=== PATIENT | male | born 1960 | race Two or more races ===

== ENCOUNTER 2025-01-29 21:01 | Inpatient (IN) | payer OTHER ==
[~2025-01-29] VITALS: Ht 177.8 cm; Wt 95.3 kg
[2025-01-29 21:40] VITALS: PULSE 118; RESP 31; O2SAT 88
[2025-01-29] MEDS: SODIUM CHLORIDE 0.9% 1,000 ML IV ONE (21:41)
--- NOTE | 2025-01-29 21:53 | DVH ---
CHEST RADIOGRAPH Indication: Suspected Sepsis Technique: Single frontal view of the chest was obtained Comparison: None FINDINGS: Lines and Tubes: None Lungs: Left lower lobe airspace disease and possible pleural effusion.. Pleura: Possible pleural effusion on the left as well as airspace disease. No pneumothorax. Cardiomediastinal contours: Unremarkable Bones: No acute osseous abnormality. IMPRESSION: 1. Left lower lobe airspace disease and pleural effusion. No prior studies for comparison.
[2025-01-29 21:59] LABS: Chloride 99 mmol/L (98-107); Potassium 3.5 mmol/L (3.5-5.1)
[2025-01-29 22:00] LABS: Anion Gap 13 (5-15); Basophils # (auto) 0 10 ^3/uL (0-0.2); Basophils % (auto) 0.1 % (0.0-2.0); Carbon Dioxide 24 mmol/L (20-31); Eosinophils # (auto) 0 10 ^3/uL (0-0.8); Eosinophils % (auto) 0.1 % (0.0-7.0); Hematocrit 36.8 % (41.0-53.0); Hemoglobin 12.4 g/dL (13.5-17.5); Lymphocytes # (auto) 0.9 10 ^3/uL (0.4-5.4); Lymphocytes % (auto) 6.9 % (10.0-50.0); Mean Corpuscular Hemoglobin 31.5 pg (28.0-32.0); Mean Corpuscular Hgb Conc. 33.7 g/dL (32.0-36.0); Mean Corpuscular Volume 93.5 fL (80.0-100.0); Monocytes # (auto) 0.8 10 ^3/uL (0-1.3); Monocytes % (auto) 5.6 % (0.0-12.0); Neutrophils # (auto) 11.8 10 ^3/uL (1.6-8.6); Neutrophils % (auto) 87.3 % (37.0-80.0); Nucleated Red Blood Cells % 0.1 %; Platelet Count (auto) 439 10^3/uL (140-450); Red Blood Cells 3.94 10^6/uL (4.5-5.90); Red Cell Distribution Width 15.7 % (11.8-14.3); White Blood Cell 13.6 10^3/uL (4.4-10.8)
[2025-01-29 22:05] LABS: BUN/Creatinine Ratio 29.4 (10.0-20.0); Blood Urea Nitrogen 20 mg/dL (9-23)
[2025-01-29 22:06] LABS: Magnesium 2.2 mg/dL (1.6-2.6)
[2025-01-29 22:10] LABS: Calcium 8.4 mg/dL (8.7-10.4); Glucose 135 mg/dL (74-106); Sodium 136 mmol/L (136-145)
--- NOTE | 2025-01-29 22:47 | DVH ---
CLINICAL HISTORY: Bilateral lower extremity edema, shortness of breath TECHNIQUE: Color and duplex doppler imaging of the bilateral lower extremity veins was performed. Ves brijesh compression if possible was also performed. WID: COMPARISON: None FINDINGS: Right Lower Extremity: Right common femoral vein: Normal compressibility and flow. Right femoral vein: Normal compressibility and flow. Right popliteal vein: Normal compressibility and flow. Proximal calf veins are normally compressible. Left Lower Extremity: Left common femoral vein: Normal compressibility and flow. Left femoral vein: Normal compressibility and flow. Left popliteal vein: Normal compressibility and flow. Proximal calf veins are normally compressible. IMPRESSION: NO SONOGRAPHIC EVIDENCE FOR DEEP VENOUS THROMBOSIS IN THE BILATERAL LOWER EXTREMITY VEINS.
--- NOTE | 2025-01-29 23:09 | ED.PDOC ---
History of Present Illness HPI Comments 64 y/o M presents with c/o sternal, nonradiating chest pain, palpitations, shortness of breath, productive cough, nausea, vomiting, lightheadedness, and fever. Patient endorses on being sick for the past few weeks. Describes chest pain as tightness in quality. Vomitus contains bile. Endorses history of h ypertension, pneumonia, and recent UTI diagnosis. He is on Keflex, currently, for aforementioned UTI. He takes no medication for hypertension for the past 5 years and has been managing it via diet. 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 Patient denies having any chills, bloody vomitus, diarrhea, or further associated symptoms. Per EMS report, vitals were stable within normal limits with, with the exception of being tachycardic and having an initial SpO2 of 84% on room air. Patient was given DuoNeb treatment in route, with significant improvement to SpO2 93%. Chief Complaint: Nausea/Vomiting Time Seen by MD: 21:15 Reviewed Notes: Nurses Notes, Medications, Allergies Allergies: Coded Allergies: NO KNOWN ALLERGIES (Unverified , 01/29/25) Information Source: Patient Mode of Arrival: EMS Severity: Moderate Timing: Hours Duration: Since onset Prehospital treatment: None Review of Systems: REVIEW OF SYSTEMS: Fever, no chills, or fatigue HEENT: No sore throat, no earache, no congestion, no neck pain. Cardiac: Chest pain, palpitations, lightheadedness Lungs: Shortness of breath, productive cough. GI: Nausea, vomiting, no diarrhea, no constipation, no abdominal pain : No dysuria, frequency, or urgency. No hematuria. Musculoskeletal: No joint pain , no joint swelling, no extremity edema. Skin: No rash, no itching. Neuro: No headache, no dizziness, no weakness Vital Signs Vital Signs Date Time Temp Pulse Resp B/P (MAP) Pulse Ox O2 Delivery O2 Flow Rate FiO2 01/29/25 23:09 118 01/29/25 21:08 98.8 24 117/90 (99) 93 98.8 Physical Exam General: Awake, alert and oriented. No acute distress. Skin: Skin in warm, dry and intact. Appropriate color for ethnicity. HEENT: The head is normocephalic and atraumatic. Conjunctivae are clear without exudates or hemorrhage. Sclera is non-icteric. EOM are intact. No signs of nystagmus. Eyelids are normal in appearance without swelling or lesions. Oral mucosa is pink and moist Neck: The neck is supple with normal range of motion. No JVD. Cardiac: Rapid heart rate but rhythm is normal. No murmurs, gallops, or rubs are auscultated. Respiratory: No signs of respiratory distress. Lung sounds are clear in all lobes bilaterally without rales, rhonchi, or wheezes. Abdominal: Abdomen is soft, non-tender without distention, guarding or rigidity. Bowel sounds are present and normoactive in all four quadrants. Extremities: Bilateral pedal edema. Otherwise, remaining upper and lower extremities are atraumatic in appearance without deformity or edema Neurological: The patient is awake, alert and oriented to person, place, and time with normal speech. Speech is clear. There is no facial asymmetry. Psychiatric: Appropriate mood and affect. Good judgement and insight. Past Medical History PAST MEDICAL HISTORY: Denies Surgical History: Denies all surgeries Family History Family History: Unknown Social History Smoker: Non-Smoker Alcohol: Denies ETOH Use Drugs: Denies Drug Use Lives In: Home Was a procedure done? Was a procedure done?: No EKG EKG : Pulse Rate (adult): 118 [place]: Normal Cardiac Rhythm: ST Block: None Hypertrophy: None ST: Normal Differential Dx Considerations may include: Differential diagnoses considered include acute ischemic coronary syndrome, aortic dissection, cardiac tamponade, mediastinitis, pulmonary embolus, pneumothorax, tension pneumothorax, esophageal rupture, coronary artery vasospasm, myocarditis, pericarditis, pneumonia, pulmonary edema, esophageal tear, pancreatitis, aortic stenosis, dilated cardiomyopathy, hypertrophic cardiomyopathy, mitral valve prolapse, malignancy, pleuritis, pneumomediastinum, primary pulmonary hypertension, cholecystitis, esophageal spasm, esophagus, gastritis, GERD, peptic ulcer disease, costochondritis, fibromyalgia, rib fracture, herpes zoster, radicular syndromes, thoracic outlet syndrome, somatization. X-Ray, Labs, Meds, VS Vital Signs Date Time Temp Pulse Resp B/P (MAP) Pulse Ox O2 Delivery O2 Flow Rate FiO2 01/29/25 23:09 118 01/29/25 21:08 98.8 129 24 117/90 (99) 93 98.8 01/29/25 21:07 118 Lab Test 01/29/25 22:10 01/29/25 21:27 Range/Units Troponin I High Sensitivity 15 17 </=54 ng/L White Blood Count 13.6 H 4.4-10.8 10^3/uL Red Blood Count 3.94 L 4.5-5.90 10^6/uL Hemoglobin 12.4 L 13.5-17.5 g/dL Hematocrit 36.8 L 41.0-53.0 % Mean Corpuscular Volume 93.5 80.0-100.0 fL Mean Corpuscular Hemoglobin 31.5 28.0-32.0 pg Mean Corpuscular Hemoglobin Concent 33.7 32.0-36.0 g/dL Red Cell Distribution Width 15.7 H 11.8-14.3 % Platelet Count 439 140-450 10^3/uL Mean Platelet Volume 8.1 6.9-10.8 fL Neutrophils (%) (Auto) 87.3 H 37.0-80.0 % Lymphocytes (%) (Auto) 6.9 L 10.0-50.0 % Monocytes (%) (Auto) 5.6 0.0-12.0 % Eosinophils (%) (Auto) 0.1 0.0-7.0 % Basophils (%) (Auto) 0.1 0.0-2.0 % Neutrophils # (Auto) 11.8 H 1.6-8.6 10 ^3/uL Lymphocytes # (Auto) 0.9 0.4-5.4 10 ^3/uL Monocytes # (Auto) 0.8 0-1.3 10 ^3/uL Eosinophils # (Auto) 0 0-0.8 10 ^3/uL Basophils # (Auto) 0 0-0.2 10 ^3/uL Nucleated Red Blood Cells 0.1 % Sodium Level 136 136-145 mmol/L Potassium Level 3.5 3.5-5.1 mmol/L Chloride Level 99 98-107 mmol/L Carbon Dioxide Level 24 20-31 mmol/L Anion Gap 13 5-15 Blood Urea Nitrogen 20 9-23 mg/dL Creatinine 0.68 L 0.700-1.30 mg/dL Glomerular Filtration Rate Calc 105 >90 mL/min BUN/Creatinine Ratio 29.4 H 10.0-20.0 Serum Glucose 135 H 74-106 mg/dL Lactic Acid Level 1.4 0.4-2.0 mmol/L Calcium Level 8.4 L 8.7-10.4 mg/dL Magnesium Level 2.2 1.6-2.6 mg/dL B-Type Natriuretic Peptide 247.79 0-100 pg/mL Current Medications Medications (Trade) Dose Ordered Sig/William Route Start Time Stop Time Status Last Admin Sodium Chloride 1,000 ml @ 1,000 mls/hr Q1H ONCE IV 01/29/25 21:30 01/29/25 22:29 DC 01/29/25 21:41 Sodium Chloride 1,850 ml @ 1,850 mls/hr Q1H ONCE IV 01/29/25 23:30 01/30/25 00:29 01/29/25 23:44 Piperacillin Sod/ Tazobactam Sod 100 ml @ 100 mls/hr ONCE ONCE IV 01/29/25 23:30 01/30/25 00:29 01/29/25 23:48 [place] [address] Ph: [phone] DIAGNOSTIC IMAGING Diagnostic Imaging Report : [id number] Signed PATIENT: TAY BELL ACCT: [id number] UNIT: [id number] : 1960 LOC: ER ROOM / BED: / AGE / SEX: 64 / M ADM STATUS: REG ER SERVICE 17 ORDERING PHYSICIAN: TRUDY ANTONY MD PROCEDURE(s): CXR1 - CHEST XRAY 1 VIEW REASON: Suspected Sepsis ORDER NUMBER(s): [id number], ACCESSION NUMBER(s): [id number] CHEST RADIOGRAPH Indication: Suspected Sepsis Technique: Single frontal view of the chest was obtained Comparison: None FINDINGS: Lines and Tubes: None Lungs: Left lower lobe airspace disease and possible pleural effusion.. Pleura: Possible pleural effusion on the left as well as airspace disease. No pneumothorax. Cardiomediastinal contours: Unremarkable Bones: No acute osseous abnormality. IMPRESSION: 1. Left lower lobe airspace disease and pleural effusion. No prior studies for comparison. ATED BY: CATIA SALAS Jr. DO DICTATED DATE/TIME: 01/29/252150 SIGNED BY: CATIA SALAS Jr., DO SIGNED DATE/TIME: 01/29/252150 CC: [place] [address] Ph: [phone] DIAGNOSTIC IMAGING Diagnostic Imaging Report : [id number] Signed PATIENT: TAY BELL ACCT: [id number] UNIT: [id number] : 1960 LOC: ER ROOM / BED: / AGE / SEX: 64 / M ADM STATUS: REG ER SERVICE 17 ORDERING PHYSICIAN: TRUDY ANTONY MD PROCEDURE(s): BLDVT - BiLat Lower DVT REASON: Bilateral lower extremity edema, shortness of breath ORDER NUMBER(s): [id number], ACCESSION NUMBER(s): [id number] CLINICAL HISTORY: Bilateral lower extremity edema, shortness of breath TECHNIQUE: Color and duplex doppler imaging of the bilateral lower extremity veins was performed. Vessel compression if possible was also performed. WID: COMPARISON: None FINDINGS: Right Lower Extremity: Right common femoral vein: Normal compressibility and flow. Right femoral vein: Normal compressibility and flow. Right popliteal vein: Normal compressibility and flow. Proximal calf veins are normally compressible. Left Lower Extremity: Left common femoral vein: Normal compressibility and flow. Left femoral vein: Normal compressibility and flow. Left popliteal vein: Normal compressibility and flow. Proximal calf veins are normally compressible. IMPRESSION: NO SONOGRAPHIC EVIDENCE FOR DEEP VENOUS THROMBOSIS IN THE BILATERAL LOWER EXTREMITY VEINS. ATED BY: ANDREW PORTER MD DICTATED DATE/TIME: 01/29/252243 SIGNED BY: ANDREW PORTER MD SIGNED DATE/TIME: 01/29/252243 CC: Time of 1ST Reevaluation: 21:45 Reevaluation 1ST: Unchanged Patient Education/Counseling: Treatment, Other (need for admission ) Family Education/Counseling: No Family Present Sepsis Sepsis Reasesment Focused Exam Orders: Laboratory Tests 01/29/25 21:27: Lactic Acid Level 1.4 Departure 1 Departure Time of Disposition: 00:19 Impression: Primary Impression: Pneumonia Additional Impressions: Atrial fibrillation with RVR Hypoxia Disposition: ADMITTED INPATIENT Condition: Serious Comments 64-year-old male who presented with shortness of breath, generally feeling unwell found to have pneumonia. He was started on antibiotics. During the ED observation he was noted to convert to atrial fibrillation with RVR with a rate as high as 180s. No improvement with 6 mg of adenosine. Patient is started on amiodarone bolus and drip. Patient admitted to hospitalist service for further treatment, evaluation and monitoring. Extensive evaluation was performed in attempt to identify or rule out: (See differential diagnosis section) The following tests were ordered, and results were reviewed by me and discussed with patient: (See diagnostic results section) The following test were independently interpreted by me: EKG I reviewed and agreed with the following test results read by other providers: N/A I reviewed the following notes from the pt's past medical encounters: N/A Additional information was gathered from interviewing the following independent historians: EMS personnel Discussion of management or test interpretation with external physician/other qualified health housekeeper caregiver: Chest x-ray Addressed an acute or chronic illness that poses a threat to life or bodily function: Pneumonia, hypoxia, AFib with RVR Decision regarding hospitalization or escalation of hospital level of care: Risk and benefits of admission for further treatment of patient's condition was considered. Due to patient's current clinical condition, high risk of decline and poor outcome if discharged and need for further inpatient management and monitoring, patient will be admitted to the hospital. Drug therapy requiring intensive monitoring for toxicity: IV adenosine, IV amiodarone Parenteral controlled substances: N/A Decision regarding elective major surgery with identified patient or procedure risk factors: N/A Decision regarding emergency major surgery: N/A Decision not to resuscitate or to de-escalate care because of poor prognosis: N/A Diagnosis or treatment significantly limited by social determinants of health: N/A Critical Care Note Critical Care Time?: Yes (35 min-critical care time only) Critical care comment: Due to a high probability of clinically significant, life threatening deterioration, the patient required my highest level of preparedness to intervene emergently and I personally spent this critical care time directly and personally managing the patient. This critical care time included obtaining a history; examining the patient; pulse oximetry; ordering and review of studies; arranging urgent treatment with development of a management plan; evaluation of patient's response to treatment; frequent reassessment; and, discussions with other providers. This critical care time was performed to assess and manage the high probability of imminent, life-threatening deterioration that could result in multi-organ failure. It was exclusive of separately billable procedures and treating other patients and teaching time. Please see my other sections and the rest of the note for further information on patient assessment and treatment. Stability Stability form required: No Heart Score Heart Score: Heart Score Response (Comments) Value History N/A 0 EKG N/A 0 Age N/A 0 Risk Factors N/A 0 Troponin N/A 0 Total 0 I personally scribed for TRUDY ANTONY MD ([email or web address]) on 01/29/25 at 23:09. Electronically submitted by López Antonio ([email or web address]). TRUDY ANTONY MD Jan 29, 2025 23:09
[2025-01-29] MEDS: SODIUM CHLORIDE 0.9% 1,850 ML IV ONE (23:44)
[2025-01-29] MEDS: PIPERACILLIN-TAZOB 3.375GM 100 ML IV ONE (23:48)
[2025-01-30] VITALS (83 sets, daily range): BP systolic 79–132; BP diastolic 41–100; PULSE 90–178; RESP 12–41; TEMP 97.9–98.9; O2SAT 76–99
[2025-01-30] MEDS: ADENOSINE 6 MG/2 ML INJ IV ONE ×4 (00:09→02:42)
[2025-01-30] MEDS: AMIODARONE BOLUS KIT 100 ML IV ONE ×3 (00:30→02:41)
[2025-01-30] MEDS: dilTIAZem 25 MG/5 ML VIAL IV ONE ×4 (00:46→02:41)
[2025-01-30] MEDS: dilTIAZem 125mg/125ml BAG KIT 125 ML IV ONE (01:17)
[2025-01-30] MEDS: SODIUM CHLORIDE 0.9% 1,000 ML IV ONE ×2 (02:33→03:53)
[2025-01-30] MEDS: AMIODARONE 360mg/200mL PREMIX 200 ML IV ONE ×2 (02:41→02:48)
[2025-01-30] MEDS: AMIODARONE 360mg/200mL PREMIX 200 ML IV SCH (02:48)
[2025-01-30] MEDS ORDERED: MORPHINE SULFATE INJ 2 MG/ml SYRG IV PRN (03:00)
[2025-01-30] MEDS ORDERED: VANCOMYCIN PER PHARMACY 0 MG IV SCH (03:00)
[2025-01-30] MEDS ORDERED: NITROGLYCERIN 0.4 MG SL TAB SL PRN (03:00)
[2025-01-30] MEDS ORDERED: ACETAMINOPHEN 325 MG TAB PO PRN (03:30)
[2025-01-30] MEDS: VANCOMYCIN 1GM/200ML PM 250 ML IV ONE (03:45)
[2025-01-30] MEDS: POTASSIUM CHL 20 Meq TABLET PO ONE ×2 (03:52→06:30)
[2025-01-30] MEDS: PANTOPRAZOLE 40 MG/10 ML VIAL INJ IV ONE (03:52)
[2025-01-30] MEDS: ENOXAPARIN SOD 100 MG/1 ML SYRINGE SC ONE (04:09)
--- NOTE | 2025-01-30 04:49 | DVHHPRES ---
History of Present Illness Resident Creating Document: JHVIRGINIEBISHNUCRIS RESIDENT History of Present Illness Patient is a 64-year-old male with a past medical history of hypertension presented to the ED with a chief complaint of shortness of breath, palpitations and productive cough. Patient reports that in September this year he had flu/COVID following which he had bacterial sinusitis and he received antibiotics and he returned to his normal work. 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 Patient reported since about a week ago he started to have cough initially dry but then started to have phlegm which brownish in color. Patient denied any chills but reported of feeling feverish but did not record. He has a associated mild chest pain on coughing in the left side. Since the last 2 days patient had worsening shortness of breath and episode of palpitations following which he came called the EMS and as per EMS patient was tachycardic and had low oxygen at 84% on room air following which he was given a DuoNeb treatment and put on oxygen EN route and is SpO2 improved. On arrival to the ER patient was tachycardic in the ECG showed atrial fibrillation with a RVR following which the patient was given a push of diltiazem but it did not improve and another push was given the heart rate did not decrease following which he was put on the diltiazem drip. Past medical history: Hypertension diagnosed about 5 years ago and patient is not on any medications Past surgical history: None Social history: Patient smokes 3-4 pack of cigarettes per week for the last 30 years, denies alcohol and any other drug use Home medications: None Review of Systems Review of Systems Patient seen and examined at the bedside Reports of shortness of breath which has improved since he came in to the hospital, currently on 2-3 L oxygen via nasal cannula Reports of mild chest pain on coughing, cough with expectoration No dysuria, abdominal pain Allergies: Coded Allergies: NO KNOWN ALLERGIES (Unverified , 01/29/25) Medications Current Medications Medications Dose Ordered Sig/William Route Start Time Stop Time Status Last Admin Dose Admin Nitroglycerin 0.4 mg Q5MINP PRN SL 01/30/25 03:00 Morphine Sulfate 2 mg Q30M PRN IV 01/30/25 03:00 Vancomycin HCl 0 ml @ 0 mls/hr UD IV 01/30/25 03:00 UNV Piperacillin Sod/ Tazobactam Sod 100 ml @ 25 mls/hr Q8HR IV 01/30/25 06:00 Enoxaparin Sodium 100 mg Q12HR SC 01/30/25 10:00 UNV Exam Vital Signs Vital Signs Date Time Temp Pulse Resp B/P (MAP) Pulse Ox O2 Delivery O2 Flow Rate FiO2 01/30/25 01:17 113/80 01/30/25 00:11 162 01/29/25 21:08 98.8 24 93 98.8 Exam Gen - no pallor, no icterus, no cyanosis, no clubbing, no LAD, no edema . Skin - Patients skin is warm and dry. HEENT - normocephalic, atraumatic, dry mucous membranes. Neck - full ROM, no LAD, jugular venous pulsation seen in the lower 3rd of the SCM Pulmonary - right lung - breath sounds heard in whole of the lung without rales, left lung breath sounds not heard in the lower 3rd, middle 3rd minimal rales, no wheezing, no stridor cardiovascular - irregularly irregular S1,S2 heard, patient was tachycardic. peripheral pulses normal radial 2+, pedal 2+. capillary refill normal <2 secs. GI - soft, nontender abdomen. no hepatospleenomegaly. Bowel sounds normoactive Neurological - Patient is A/O X 3 . Bilateral upper extremity strength 5/5, bilateral lower extremity strength 5/5, no facial droop, normal speech, no tr emor, no sensory deficiets. Labs/Xrays Labs Test 01/30/25 00:20 01/29/25 21:27 Range/Units Troponin I High Sensitivity 17 </=54 ng/L White Blood Count 13.6 H 4.4-10.8 10^3/uL Red Blood Count 3.94 L 4.5-5.90 10^6/uL Hemoglobin 12.4 L 13.5-17.5 g/dL Hematocrit 36.8 L 41.0-53.0 % Mean Corpuscular Volume 93.5 80.0-100.0 fL Mean Corpuscular Hemoglobin 31.5 28.0-32.0 pg Mean Corpuscular Hemoglobin Concent 33.7 32.0-36.0 g/dL Red Cell Distribution Width 15.7 H 11.8-14.3 % Platelet Count 439 140-450 10^3/uL Mean Platelet Volume 8.1 6.9-10.8 fL Neutrophils (%) (Auto) 87.3 H 37.0-80.0 % Lymphocytes (%) (Auto) 6.9 L 10.0-50.0 % Monocytes (%) (Auto) 5.6 0.0-12.0 % Eosinophils (%) (Auto) 0.1 0.0-7.0 % Basophils (%) (Auto) 0.1 0.0-2.0 % Neutrophils # (Auto) 11.8 H 1.6-8.6 10 ^3/uL Lymphocytes # (Auto) 0.9 0.4-5.4 10 ^3/uL Monocytes # (Auto) 0.8 0-1.3 10 ^3/uL Eosinophils # (Auto) 0 0-0.8 10 ^3/uL Basophils # (Auto) 0 0-0.2 10 ^3/uL Nucleated Red Blood Cells 0.1 % Sodium Level 136 136-145 mmol/L Potassium Level 3.5 3.5-5.1 mmol/L Chloride Level 99 98-107 mmol/L Carbon Dioxide Level 24 20-31 mmol/L Anion Gap 13 5-15 Blood Urea Nitrogen 20 9-23 mg/dL Creatinine 0.68 L 0.700-1.30 mg/dL Glomerular Filtration Rate Calc 105 >90 mL/min BUN/Creatinine Ratio 29.4 H 10.0-20.0 Serum Glucose 135 H 74-106 mg/dL Lactic Acid Level 1.4 0.4-2.0 mmol/L Calcium Level 8.4 L 8.7-10.4 mg/dL Magnesium Level 2.2 1.6-2.6 mg/dL B-Type Natriuretic Peptide 247.79 0-100 pg/mL Assessment/Plan Assessment/Plan Acute hypoxic respiratory failure Pneumonia likely due to Gram +/-bacteria Sepsis likely due to above Left pleural effusion - chest x-ray shows possible left lower lobe consolidation - total of 4 L IV fluids given - IV vancomycin plus Zosyn - POCUS showed left pleural effusion - chest ultrasound pending - Mucomyst q.6 hours - oxygen via nasal cannula 2-3 L/min - blood cultures pending - Sputum cultures pending Atrial fibrillation with RVR, newly diagnosed Hypertensive heart disease - on diltiazem drip - anticoagulation with the enoxaparin therapeutic dose - keep potassium above 4 and magnesium above 2 PUD prophylaxis: Protonix DVT prophylaxis: On enoxaparin therapeutic dose Goals of care discussed with the patient for over 29 minutes. Full code Critical care time spent: 71 minutes Plan discussed with Dr. Vega Plan discussed with: Patient, Other (NOMI Lorenzo) My Orders Orders - DIXIE JOHNSON RESIDENT Procedure Category Date Status Time Admit ADMIT 01/30/25 Transmitted 02:52 Nitroglycerin PHA 01/30/25 In Process Sublingual (Ntrostat 03:00 Morphine Sulfate PHA 01/30/25 In Process Injection 03:00 Oxygen By Nasal RT 01/30/25 Transmitted Cannula 02:52 Stat Ekg For Chest DESEAN 01/30/25 In Process Pain 02:52 Notify Md Of Changes [facility] 01/30/25 In Process From Base 02:[address] [facility] 01/30/25 In Process 24 Hours 02:[address] [facility] 01/30/25 In Process Protocol 02:[address] [facility] 01/30/25 In Process Every Shift 02:52 Vancomycin Per PHA 01/30/25 Pending Pharmacy 03:00 Piperacillin-Tazob PHA 01/30/25 In Process 3.375gm (Zosyn 3.375g 06:00 Drug Screen LAB 01/30/25 Logged 02:52 Complete Blood Count LAB 01/30/25 Logged 04:00 Comprehensive LAB 01/30/25 Logged Metabolic Panel 04:00 Mrsa Screen [facility] 01/30/25 Logged 02:52 Respiratory Culture [facility] 01/30/25 Logged W/ Gs 02:52 Enoxaparin Sodium PHA 01/30/25 Logged (Lovenox) 10:00 Acetaminophen Tablet PHA 01/30/25 In Process (Tylenol Tablet) 03:30 Pantoprazole PHA 01/30/25 In Process (Protonix) 10:00 Chest Ultrasound US 01/30/25 Logged 03:22 Sodium Chloride 0.9% PHA 01/30/25 In Process 03:45 Date of Service: Jan 30, 2025 Billing Provider: LARRY VEGA MD Common Visit Codes: 12011-UCSSPXE INP/OBS CARE (HIGH) Secondary Visit Codes: [id number] CARE PLAN 30 MINUTES DIXIE JOHNSON RESIDENT Jan 30, 2025 04:49
[2025-01-30 05:28] LABS: Basophils # (auto) 0 10 ^3/uL (0-0.2); Basophils % (auto) 0.3 % (0.0-2.0); Eosinophils # (auto) 0 10 ^3/uL (0-0.8); Eosinophils % (auto) 0.2 % (0.0-7.0); Hemoglobin 11.5 g/dL (13.5-17.5); Lymphocytes # (auto) 1.1 10 ^3/uL (0.4-5.4); Lymphocytes % (auto) 12.2 % (10.0-50.0); Mean Corpuscular Hemoglobin 31.6 pg (28.0-32.0); Mean Corpuscular Hgb Conc. 33.7 g/dL (32.0-36.0); Mean Corpuscular Volume 93.6 fL (80.0-100.0); Monocytes # (auto) 0.6 10 ^3/uL (0-1.3); Monocytes % (auto) 6.9 % (0.0-12.0); Neutrophils # (auto) 7.1 10 ^3/uL (1.6-8.6); Neutrophils % (auto) 80.4 % (37.0-80.0); Platelet Count (auto) 378 10^3/uL (140-450); Red Blood Cells 3.63 10^6/uL (4.5-5.90); White Blood Cell 8.9 10^3/uL (4.4-10.8)
[2025-01-30 05:28] LABS: COVID19 ANTIGEN SOFIA FIA NEGATIVE (NEGATIVE); Rapid Influenza A Negative (Negative); Rapid Influenza B Negative (Negative)
[2025-01-30 05:54] LABS: Alanine Aminotransferase 122 U/L (7-40); Alkaline Phosphatase 93 U/L (46-116); Anion Gap 11 (5-15); Aspartate Aminotransferase 137 U/L (13-40); Blood Urea Nitrogen 17 mg/dL (9-23); Calcium 7.4 mg/dL (8.7-10.4); Carbon Dioxide 24 mmol/L (20-31); Chloride 102 mmol/L (98-107); Glucose 119 mg/dL (74-106); Potassium 3.3 mmol/L (3.5-5.1); Sodium 137 mmol/L (136-145); Total Protein 5.5 g/dL (5.7-8.2)
[2025-01-30 05:55] LABS: Bilirubin, Total 0.4 mg/dL (0.2-1.0)
[2025-01-30] MEDS ORDERED: ALBUTEROL SULF 2.5 MG/0.5ML(0.5%) NEB SOLN NEB SCH (06:00)
[2025-01-30] MEDS: LEVALBUTEROL HCL 1.25 MG/3 ML NEB NEB SCH (06:12)
[2025-01-30] MEDS: ACETYLCYSTEINE 10 %(100MG/ML) SOL 4ML NEB SCH (06:12)
[2025-01-30] MEDS: PIPERACILLIN-TAZOB 3.375GM 100 ML IV SCH (06:19)
--- NOTE | 2025-01-30 06:57 | ECG ---
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
[2025-01-30] MEDS: POTASSIUM EFFERVESENT TAB 25 MEQ PO ONE (08:26)
--- NOTE | 2025-01-30 08:55 | DVH ---
Bilateral Chest Sonogram Date: 01/30/2025 07:13 AM Clinical history: left pleural effusion Findings: Limited sonographic evaluation of the right and left chest was performed to localize and lu fluid f or thoracentesis. Small left pleural effusion. No right pleural effusion IMPRESSION: Small left pleural effusion. No right pleural effusion END IMPRESSION:
--- NOTE | 2025-01-30 08:55 | DVH ---
CHEST RADIOGRAPH Indication: SOB Technique: Single frontal view of the chest was obtained Comparison: XY CHEST XRAY 1 VIEW on DOS: 01/29/25, XY CHEST XRAY 1 VIEW on DOS: 01/29/25 FINDINGS: Lines and Tubes: None Lungs: Left lower lobe airspace disease and possible pleural effusion.. Pleura: Possible pleural effusion on the left as well as airspace disease. No pneumothorax. Cardiomediastinal contours: Unremarkable Bones: No acute osseous abnormality. IMPRESSION: 1. Left lower lobe airspace disease and pleural effusion. No prior studies for comparison.
--- NOTE | 2025-01-30 09:17 | DVHINCON2 ---
Date Seen: Jan 30, 2025 Referring Physician MD [place] resident Reason for Consultation New onset Afib RVR History of Present Illness This is a 64-year-old male patient who presents to the emergency room with chief complaint of shortness of breath, palpitations and cough. The patient reports he has been having a cough for the last couple of weeks. He reports generalized weakness for approximately one week. The patient describes worsening shortness of breath and palpitations that began yesterday morning. He came to the emergency room for further evaluation. Initial twelve lead electrocardiogram reveals atrial fibrillation with a rapid ventricular response. While in the emergency room, the patient was given adenosine 6 mg IV x1 followed by adenosine 12 mg IV x1, with no improvement in heart rate. ER provider then ordered Cardizem 15 mg IV x1. Followed by Cardizem 20 mg IV x1, still with no improvement in heart rate. The patient was subsequently initiated on a Cardizem drip by ER physician. At the time of assessment, the patient remains in atrial fibrillation with rapid ventricular rate. Initial troponin level of 17ng/L with flat trend thereafter. Significant past medical history includes hypertension, COVID pneumonia in September 2024, recent urinary tract infection, tobacco use and obesity. The patient reports he does not follow a primary care physician and the last time he was evaluated by provider was approximately five years ago. Past Medical History Past medical history reviewed. No other significant than mentioned above. Past Surgical History Denies any previous surgeries Family History Family history reviewed. Social History Patient has a 20 pack-year history, smokes half a pack per day Denies any illicit drug use Denies any alcohol use Allergies: Coded Allergies: NO KNOWN ALLERGIES (Unverified , 01/29/25) Home Meds Denies taking any prescribed medications Current Medications Current Medications Medications (Trade) Dose Ordered Sig/William Route PRN Reason Start Time Stop Time Status Last Admin Nitroglycerin (Ntrostat Sublingual) 0.4 mg Q5MINP PRN SL FOR CHEST PAIN 01/30/25 03:00 Morphine Sulfate 2 mg Q30M PRN IV FOR CHEST PAIN 01/30/25 03:00 Vancomycin HCl 0 ml @ 0 mls/hr UD IV 01/30/25 03:00 Piperacillin Sod/ Tazobactam Sod 100 ml @ 25 mls/hr Q8HR IV 01/30/25 06:00 01/30/25 06:19 Enoxaparin Sodium (Lovenox) 100 mg Q12H SC 01/30/25 16:00 Acetaminophen (Tylenol Tablet) 650 mg Q6HP PRN PO PAIN SCALE 1-3 OR TEMP>100.4 01/30/25 03:30 Pantoprazole Sodium (Protonix) 40 mg DAILY IV 01/30/25 10:00 Acetylcysteine (Mucomyst Inahalation 10%) 100 mg Q6HR NEB 01/30/25 06:00 01/30/25 06:12 Albuterol (Ventolin Medneb) 2.5 mg Q6HR NEB 01/30/25 06:00 01/30/25 05:15 DC Levalbuterol HCl (Xopenex Medneb) 0.625 mg Q6HR NEB 01/30/25 06:00 01/30/25 06:12 Vancomycin HCl 150 ml @ 150 mls/hr Q8H IV 01/30/25 12:00 Review of Systems Constitutional: No symptom reported Ears, Nose, & Throat: No symptom reported Eyes: No symptom reported Neurological: No symptoms reported Pulmonary/Respiratory: shortness of breath Cardiovascular: Palpitations Gastrointestinal: No symptom reported Genitourinary: No symptom reported Musculoskeletal: No symptom reported Skin: No symptom reported Psychiatric: No symptom reported Endocrine: No symptom reported Hematologic/Lymphatic: No symptom reported Vital Signs Vital Signs Date Time Temp Pulse Resp B/P (MAP) Pulse Ox O2 Delivery O2 Flow Rate FiO2 01/30/25 08:30 95/59 01/30/25 08:00 113 26 92 Nasal Cannula* 4 36 01/30/25 07:25 98.8 98.8 Physical Exam General Appearance: Cooperative. Obese Pulmonary/Respiratory: Diminished bilateral lower lobes Cardiovascular/Chest: Irregularly irregular rate and rhythm. Peripheral Pulses: 2+ Radial (R). 2+ Radial (L). 2+ Pedal (R). 2+ Pedal (L) Abdominal Exam: Normal bowel sounds. Ankle Exam: Negative ankle edema Lower extremities: Negative lower extremity edema Neuro/Mental Status: A/OX4, coherent. Thoughts/Psych: Normal thought pattern. Appropriate mood and affect. Good judgment and insight. Appearance: No acute distress. Skin Exam: Normal inspection. Normal color. Warm and dry. Labs/Diagnostic Data Labs Test 01/30/25 06:52 01/30/25 05:03 01/30/25 04:30 01/30/25 00:20 Range/Units Lactic Acid Level 1.4 0.4-2.0 mmol/L White Blood Count 8.9 # 4.4-10.8 10^3/uL Red Blood Count 3.63 L 4.5-5.90 10^6/uL Hemoglobin 11.5 L 13.5-17.5 g/dL Hematocrit 34.0 L 41.0-53.0 % Mean Corpuscular Volume 93.6 80.0-100.0 fL Mean Corpuscular Hemoglobin 31.6 28.0-32.0 pg Mean Corpuscular Hemoglobin Concent 33.7 32.0-36.0 g/dL Red Cell Distribution Width 16.0 H 11.8-14.3 % Platelet Count 378 140-450 10^3/uL Mean Platelet Volume 7.8 6.9-10.8 fL Neutrophils (%) (Auto) 80.4 H 37.0-80.0 % Lymphocytes (%) (Auto) 12.2 10.0-50.0 % Monocytes (%) (Auto) 6.9 0.0-12.0 % Eosinophils (%) (Auto) 0.2 0.0-7.0 % Basophils (%) (Auto) 0.3 0.0-2.0 % Neutrophils # (Auto) 7.1 1.6-8.6 10 ^3/uL Lymphocytes # (Auto) 1.1 0.4-5.4 10 ^3/uL Monocytes # (Auto) 0.6 0-1.3 10 ^3/uL Eosinophils # (Auto) 0 0-0.8 10 ^3/uL Basophils # (Auto) 0 0-0.2 10 ^3/uL Nucleated Red Blood Cells 0.0 % Sodium Level 137 136-145 mmol/L Potassium Level 3.3 L 3.5-5.1 mmol/L Chloride Level 102 98-107 mmol/L Carbon Dioxide Level 24 20-31 mmol/L Anion Gap 11 5-15 Blood Urea Nitrogen 17 9-23 mg/dL Creatinine 0.63 L 0.700-1.30 mg/dL Glomerular Filtration Rate Calc 108 >90 mL/min BUN/Creatinine Ratio 27.0 H 10.0-20.0 Serum Glucose 119 H 74-106 mg/dL Calcium Level 7.4 L 8.7-10.4 mg/dL Total Bilirubin 0.4 0.2-1.0 mg/dL Aspartate Amino Transferase (AST) 137 H 13-40 U/L Alanine Aminotransferase (ALT) 122 H 7-40 U/L Alkaline Phosphatase 93 46-116 U/L Total Protein 5.5 L 5.7-8.2 g/dL Albumin 3.0 L 3.2-4.8 g/dL Thyroid Stimulating Hormone (TSH) 1.84 0.55-4.78 uIU/mL Influenza Type A Antigen Negative Negative Influenza Type B Antigen Negative Negative SARS-CoV-2 Antigen (Rapid) Negative NEGATIVE Troponin I High Sensitivity 17 </=54 ng/L Test 01/29/25 21:27 Range/Units Magnesium Level 2.2 1.6-2.6 mg/dL B-Type Natriuretic Peptide 247.79 0-100 pg/mL Assessment Atrial fibrillation with rapid ventricular response, new onset Rule out structural heart disease Hypertension Pneumonia Hypokalemia Transaminitis Tobacco use Morbid obesity Plan/Recommendation We will continue with the following plan/recommendations (Dr. Navas): * Transthoracic echocardiogram to evaluate cardiac function * ?[id number] VASc score: 1 point * Therapeutic Lovenox, transition to NOAC when appropriate * Continue Cardizem drip if patient has normal EF on echo * Loading dose digoxin, followed by maintenance dose * Monitor and replete electrolytes as needed * Close Cardiac surveillance * Antibiotics per primary care team Case discussed with . Thank you for allowing us to care for this patient. Please call with any questions or concerns. Critical care time spent: 44 minutes This medical document was created using an electronic medical record system with voice recognition software and computerized dictation system. Although this document has been carefully reviewed, there might still be some phonetic and typographical errors. Occasional wrong-word or ``sound-alike substitutions may have occurred due to the inherent limitations of voice recognition software. These areas are purely typographical due to imperfections of the software programs and do not reflect any compromise in the patient's medical care. Please read the chart carefully and recognize, using context, where these substitutions have occurred. Plan discussed with: Patient NYHA Physical activity limitations: NA Date of Service: Jan 30, 2025 Billing Provider: ANUP RODRIGUEZ RELIABILITY TECHNOLOGIST Cardiology Common Codes: 05041-NFWLFCT INP/OBS CARE (High) Cardiology Consultation Codes: 63827-[id number] CONSULT <45MIN ANUP RODRIGUEZ [facility] Jan 30, 2025 09:17
[2025-01-30] MEDS: PANTOPRAZOLE 40 MG/10 ML VIAL INJ IV SCH (09:32)
[2025-01-30] MEDS: DIGOXIN (250MCG/ML) 2 ML AMPULE IV ONE ×2 (10:49→13:22)
[2025-01-30] MEDS: VANCOMYCIN 750mg/150ml 150 ML IV SCH (13:14)
[2025-01-30] MEDS: dilTIAZem 125mg/125ml BAG KIT 125 ML IV SCH (14:06)
--- NOTE | 2025-01-30 14:18 | DVHPN2 ---
Progress Note Date Seen: Jan 30, 2025 Medical Necessity Reason Pt with a Central, PICC or Fol: No Subjective Patient reports: No new complaints Review of Systems: HEENT:Normal, CVS:Normal, RESPIRATORY:Normal, GI:Normal, :Normal, MSK:Normal, NEURO:Normal Objective vital signs Vital Sign Date Time Temp Pulse Resp B/P (MAP) Pulse Ox O2 Delivery O2 Flow Rate FiO2 01/30/25 13:45 111 12 103/61 (75) 89 01/30/25 12:00 98.0 98.0 01/30/25 11:23 Nasal Cannula* 3 32 Total Intake and Output 01/29/25 01/29/25 01/30/25 15:00 23:00 07:00 Intake Total 280 ml Balance 280 ml medications Current Medications Medications Dose Ordered Sig/William Route Start Time Stop Time Status Last Admin Dose Admin Nitroglycerin 0.4 mg Q5MINP PRN SL 01/30/25 03:00 Morphine Sulfate 2 mg Q30M PRN IV 01/30/25 03:00 Vancomycin HCl 0 ml @ 0 mls/hr UD IV 01/30/25 03:00 Piperacillin Sod/ Tazobactam Sod 100 ml @ 25 mls/hr Q8HR IV 01/30/25 06:00 01/30/25 13:24 25 MLS/HR Enoxaparin Sodium 100 mg Q12H SC 01/30/25 16:00 Acetaminophen 650 mg Q6HP PRN PO 01/30/25 03:30 Pantoprazole Sodium 40 mg DAILY IV 01/30/25 10:00 Acetylcysteine 100 mg Q6HR NEB 01/30/25 06:00 01/30/25 11:23 100 MG Levalbuterol HCl 0.625 mg Q6HR NEB 01/30/25 06:00 01/30/25 11:23 0.625 MG Vancomycin HCl 150 ml @ 150 mls/hr Q8H IV 01/30/25 12:00 01/30/25 13:14 150 MLS/HR Digoxin 0.125 mg DAILY PO 01/31/25 10:00 Diltiazem HCl 125 ml @ 5 mls/hr Q24H IV 01/30/25 13:15 Examination: GENERAL:Normal, HEENT:Normal, NECK:Normal, LUNGS:Normal, LUNGS:Abnormal (decreased left side), CVS:Normal, CVS:Abnormal (irregular), ABDOMEN:Normal, MSK:Normal, SKIN:Normal, NEURO:Normal, :Normal laboratory and microbiology Laboratory Tests 01/30/25 05:03 Test 01/30/25 05:03 Range/Units Serum Glucose 119 H 74-106 mg/dL Problem List/Assessment/Plan Problem List/Assessment/Plan #1 sepsis with left pneumonia: iv antibiotics, ct chest #2 tobacco abuse: advised to quit, nicotine replacement- time spent 11 mins #3 htn #4 a fib with rvr with secondary hypercoagulable state: lovenox, iv cardizem, dig #5 obesity #6 transaminitis unstable for transfer Plan discussed with: Patient My Orders My Orders Orders - AIMEE HENRY MD Procedure Category Date Status Time Chest Without Contrast CT 01/30/25 Logged 13:57 Urinalysis LAB 01/30/25 Uncollected 13:57 Complete Blood Count LAB 01/31/25 Verified 06:00 Comprehensive LAB 01/31/25 Verified Metabolic Panel 06:00 Respiratory Culture WILBER 01/30/25 Transmitted W/ Gs 14:07 Critical Care Time (mins): 52 (critical care time excluding procedures is 52 mins) Date of Service: Jan 30, 2025 Billing Provider: AIMEE HENRY MD Common Visit Codes: [id number] CARE 30-74 MIN AIMEE HENRY MD Jan 30, 2025 14:18
[2025-01-30 14:25] LABS: Triglycerides 100 mg/dL (< 150)
[2025-01-30 14:26] LABS: LDL Cholesterol 41 mg/dL (< 100)
[2025-01-30 14:27] LABS: Cholesterol 75 mg/dL (< 200)
[2025-01-30 14:53] LABS: HDL Cholesterol 13 mg/dL (40-59)
[2025-01-30 15:27] LABS: Urine Bacteria None Seen /hpf (None Seen)
--- NOTE | 2025-01-30 15:50 | DVH ---
Procedure: CT CHEST WITHOUT CONTRAST Reason for study/Clinical History: LEFT PNEUMONIA Comparison Study: US CHEST ULTRASOUND on DOS: 01/30/25 Exam Date: 01/30/2025 02:54 PM TECHNIQUE: Multidetector CT of the chest was performed from the lung apices to the upper abdomen with out the use of intravenous contract. Axial, coronal and sagittal multiplanar reformats were performed . Radiation Dose Information: CT Dose: CTDI volume is 18.2 mGy. Dose-length product is 626.05 mGy*cm The dose indicators for CT are the volume Computed Tomography (CT) Dose Index (CTDIvol) and the Dose Length Product (DLP), and are measured in units of mGy and mGy-cm, respectively. These indicators are not patient dose, but values generated from the CT scanner acquisition factors. The report includes radiation exposure data for exposures received during this examination. FINDINGS: Lower neck: Normal thyroid. Lungs: Patchy airspace disease left upper lobe and lingula ranging in size from 1 cm to 3.9 cm. Conso lidation left base is also seen. Findings may represent infection or neoplasm. Lower lung field is a 6.9 x 3.2 cm fluid collection is pleural-based and has an air-fluid level withi n and a larger fluid collection with air-fluid level measuring 10.8 by 11 cm. Suggest pulmonary absce sses or infected bullae Heart/Vascular Structures: Normal heart size. No pericardial effusion. Lymph Nodes: No adenopathy Pleura: No pleural effusion or significant pneumothorax. Musculoskeletal: No acute osseous abnormality. Soft tissues: Normal. Upper abdomen: Limited portions of the upper abdomen are unremarkable. IMPRESSION: 1. Airspace disease throughout the left lung in the left upper lobe and lingula with consolidation in the lower lobe. Findings may represent infection or neoplasm. 2. In the left lung base are 2 air-fluid levels 1 is pleural-based and measures 6.9 x 3.2 cm 2nd adam ures 11 0.1 x 10.8 cm. Tissue density within the collections is 7 Hounsfield units on the pleural-bas ed collection in the larger collection in the left lower lobe medially measures 14.7 Hounsfield units . Radiation optimization: All CT scans at this facility use at least one of these dose optimization tomasa hniques: automated exposure control mA and/or kV adjustment per patient size (includes targeted exam s where dose is matched to clinical indication) or iterative reconstruction.
[2025-01-30 15:55] LABS: Amphetamine Screen, Urine Neg (NEGATIVE); Barbiturate Scree,Urine Neg (NEGATIVE); Benzodiazephine Screen, Urine Neg (NEGATIVE); Cannabinoid Screen, Urine Neg (NEGATIVE); Cocaine Screen, Urine Neg (NEGATIVE); Opiate Scree,Urine Neg (NEGATIVE); Phencyclidine Screen, Urine Neg (NEGATIVE)
[2025-01-30 16:06] LABS: Urine Blood Negative /uL (Negative); Urine Clarity Clear (Clear); Urine Color Yellow (Yellow); Urine Protein, UAD TRACE (Negative); Urine Specific Gravity 1.025 (1.001-1.035); Urine Squamous Epithelial Cell FEW /hpf (<5); Urine Urobilinogen Normal (Negative); Urine WBC 2 /HPF (0-3)
[2025-01-30] MEDS: ENOXAPARIN SOD 100 MG/1 ML SYRINGE SC SCH (16:58)
[2025-01-30] MEDS: guaiFENesin-DM 100/10mg/5ml SYR PO PRN (20:16)
[2025-01-31] VITALS (61 sets, daily range): BP systolic 98–144; BP diastolic 26–96; PULSE 75–116; RESP 14–37; TEMP 97.6–98.4; O2SAT 87–100
[2025-01-31 06:22] LABS: Basophils # (auto) 0 10 ^3/uL (0-0.2); Basophils % (auto) 0.6 % (0.0-2.0); Eosinophils # (auto) 0 10 ^3/uL (0-0.8); Eosinophils % (auto) 0.4 % (0.0-7.0); Hematocrit 33.3 % (41.0-53.0); Hemoglobin 11.1 g/dL (13.5-17.5); Lymphocytes # (auto) 0.7 10 ^3/uL (0.4-5.4); Lymphocytes % (auto) 12.3 % (10.0-50.0); Mean Corpuscular Hemoglobin 31.5 pg (28.0-32.0); Mean Corpuscular Hgb Conc. 33.4 g/dL (32.0-36.0); Mean Corpuscular Volume 94.2 fL (80.0-100.0); Monocytes # (auto) 0.5 10 ^3/uL (0-1.3); Monocytes % (auto) 8.6 % (0.0-12.0); Neutrophils # (auto) 4.6 10 ^3/uL (1.6-8.6); Neutrophils % (auto) 78.1 % (37.0-80.0); Platelet Count (auto) 383 10^3/uL (140-450); Red Blood Cells 3.53 10^6/uL (4.5-5.90); Red Cell Distribution Width 16.1 % (11.8-14.3); White Blood Cell 5.9 10^3/uL (4.4-10.8)
[2025-01-31 06:38] LABS: Alkaline Phosphatase 91 U/L (46-116); Anion Gap 8 (5-15); Bilirubin, Total 0.4 mg/dL (0.2-1.0); Carbon Dioxide 27 mmol/L (20-31); Chloride 105 mmol/L (98-107); Potassium 3.7 mmol/L (3.5-5.1); Sodium 140 mmol/L (136-145)
[2025-01-31 06:44] LABS: Alanine Aminotransferase 102 U/L (7-40); Albumin 3.1 g/dL (3.2-4.8); Aspartate Aminotransferase 66 U/L (0-34); Calcium 8.4 mg/dL (8.7-10.4); Glucose 106 mg/dL (74-106); Total Protein 5.6 g/dL (5.7-8.2)
[2025-01-31 07:01] LABS: Blood Urea Nitrogen 14 mg/dL (9-23)
[2025-01-31] MEDS: MIDAZOLAM HCL 2MG/2ML 2ml VIAL (1mg/ml) IV ONE (07:15)
[2025-01-31] MEDS: fentaNYL CITRATE 100 MCG/2 ML VL IV ONE (07:15)
[2025-01-31 07:16] LABS: INR 1.18 (0.9-1.15); Partial Thromboplastin Time 34.7 SEC (24.5-34.5); Prothrombin Time 12.3 sec (9.3-11.8)
[2025-01-31] MEDS: LIDOCAINE 2%HCL (LOCAL ANESTH.) INJ 10ml MDV ONE (09:08)
--- NOTE | 2025-01-31 10:26 | DVH ---
US US GUIDANCE FOR NEEDLE PLACEME, HISTORY: CHEST TUBE for empyema. COMPARISON: None PROCEDURE: Informed consent was obtained. The patient was placed prone on the CT scanner. IV sedation was administered. The fluid collection was localized under CT scan and the overlying skin prepped wi th chlorhexidine which was allowed to dry and draped in the usual sterile fashion and infiltrated wit h Xylocaine. Time out was performed. With CT/US guidance, an 8 Fr pigtail drainage catheter was place d into the left chest empyema using Trocar technique. A post placement CT was obtained. Approximately 350 cc of purulent fluid was aspirated, with specimen sent for appropriate laboratory/cytology/labor atory and cytology evaluation. The drain was sutured at the skin surface and connected to suction philippe inage. No immediate complication was noted. Post procedure CT imaging through the drain site was obta ined. DLP = 1086 mGy-cm. SEDATION: Dr. Vance Lewis was personally responsible for the administration of moderate sedation during the procedure performed, including the use of an independent trained observer who had no other duties during the procedure. The drugs utilized were IV fentanyl and versed (see nursing log for details). The total time of supervision by the attending physician was approximately 30 minutes. FINDINGS: Limited CT scan of through the chest demonstrates a left chest empyema moderate sized fluid collection in the left pleural space. Collection appears complex. Post procedure scan shows pigtail drain within the collection . No immediate complication was identified. IMPRESSION: US/CT guided placement of 8 bulgarian pigtail drain into a left chest empyema with 350 mL purulent fluid aspirated. PLAN: Low wall suction. Daily chest x ray.
[2025-01-31] MEDS: DIGOXIN 0.125 MG TAB PO SCH (10:56)
--- NOTE | 2025-01-31 12:23 | DVHDS2 ---
Discharge Summary Date of Admission Jan 30, 2025 at 02:52 Date of Discharge: Jan 31, 2025 Admitting Diagnosis Acute hypoxic respiratory failure Labs/Diagnostic Data: Laboratory Results Test 01/31/25 10:00 01/31/25 06:00 01/30/25 15:15 01/30/25 06:52 White Blood Count 5.9 10^3/uL (4.4-10.8) Red Blood Count 3.53 10^6/uL (4.5-5.90) Hemoglobin 11.1 g/dL (13.5-17.5) Hematocrit 33.3 % (41.0-53.0) Mean Corpuscular Volume 94.2 fL (80.0-100.0) Mean Corpuscular Hemoglobin 31.5 pg (28.0-32.0) Mean Corpuscular Hemoglobin Concent 33.4 g/dL (32.0-36.0) Red Cell Distribution Width 16.1 % (11.8-14.3) Platelet Count 383 10^3/uL (140-450) Mean Platelet Volume 7.6 fL (6.9-10.8) Neutrophils (%) (Auto) 78.1 % (37.0-80.0) Lymphocytes (%) (Auto) 12.3 % (10.0-50.0) Monocytes (%) (Auto) 8.6 % (0.0-12.0) Eosinophils (%) (Auto) 0.4 % (0.0-7.0) Basophils (%) (Auto) 0.6 % (0.0-2.0) Neutrophils # (Auto) 4.6 10 ^3/uL (1.6-8.6) Lymphocytes # (Auto) 0.7 10 ^3/uL (0.4-5.4) Monocytes # (Auto) 0.5 10 ^3/uL (0-1.3) Eosinophils # (Auto) 0 10 ^3/uL (0-0.8) Basophils # (Auto) 0 10 ^3/uL (0-0.2) Nucleated Red Blood Cells 0.0 % Prothrombin Time 12.3 sec (9.3-11.8) Prothrombin Time INR 1.18 (0.9-1.15) Activated Partial Thromboplast Time 34.7 SEC (24.5-34.5) Sodium Level 140 mmol/L (136-145) Potassium Level 3.7 mmol/L (3.5-5.1) Chloride Level 105 mmol/L (98-107) Carbon Dioxide Level 27 mmol/L (20-31) Anion Gap 8 (5-15) Blood Urea Nitrogen 14 mg/dL (9-23) Creatinine 0.61 mg/dL (0.700-1.30) Glomerular Filtration Rate Calc 109 mL/min (>90) BUN/Creatinine Ratio 23.0 (10.0-20.0) Serum Glucose 106 mg/dL (74-106) Calcium Level 8.4 mg/dL (8.7-10.4) Total Bilirubin 0.4 mg/dL (0.2-1.0) Aspartate Amino Transferase (AST) 66 U/L (0-34) Alanine Aminotransferase (ALT) 102 U/L (7-40) Alkaline Phosphatase 91 U/L (46-116) Total Protein 5.6 g/dL (5.7-8.2) Albumin 3.1 g/dL (3.2-4.8) Urine Color Yellow (Yellow) Urine Clarity Clear (Clear) Urine pH 6.0 (5.0-9.0) Urine Specific [place] 1.025 (1.001-1.035) Urine Protein Trace (Negative) Urine Ketones Negative (Negative) Urine Blood Negative /uL (Negative) Urine Nitrite Negative (Negative) Urine Bilirubin Negative (Negative) Urine Urobilinogen Normal mg/dL (Negative) Urine Leukocyte Esterase Negative /uL (Negative) Urine RBC 1 /hpf (0 - 3) Urine Microscopic WBC 2 /HPF (0-3) Urine Squamous Epithelial Cells Few /hpf (<5) Urine Bacteria None seen /hpf (None Seen) Urine Glucose Normal mg/dL (Normal) Urine Opiates Screen Neg (NEGATIVE) Urine Fentanyl Screen Neg (NEGATIVE) Urine Barbiturates Screen Neg (NEGATIVE) Urine Phencyclidine Screen Neg (NEGATIVE) Urine Amphetamines Screen Neg (NEGATIVE) Urine Benzodiazepines Screen Neg (NEGATIVE) Urine Cocaine Screen Neg (NEGATIVE) Urine Cannabinoids Screen Neg (NEGATIVE) Lactic Acid Level 1.4 mmol/L (0.4-2.0) Test 01/30/25 05:03 01/30/25 04:30 01/30/25 00:20 01/29/25 21:27 Hemoglobin A1c 6.2 % A1C (<5.7) Triglycerides Level 100 mg/dL (< 150) Cholesterol Level 75 mg/dL (< 200) LDL Cholesterol 41 mg/dL (< 100) HDL Cholesterol 13 mg/dL (40-59) Thyroid Stimulating Hormone (TSH) 1.84 uIU/mL (0.55-4.78) Influenza Type A Antigen Negative (Negative) Influenza Type B Antigen Negative (Negative) SARS-CoV-2 Antigen (Rapid) Negative (NEGATIVE) Troponin I High Sensitivity 17 ng/L (</=54) Magnesium Level 2.2 mg/dL (1.6-2.6) B-Type Natriuretic Peptide 247.79 pg/mL (0-100) Other Laboratory Tests 01/31/25 06:00 Brief Hx & Hospital Course: History of Present Illness Patient is a 64-year-old male with a past medical history of hypertension presented to the ED with a chief complaint of shortness of breath, palpitations and productive cough. Patient reports that in September this year he had flu/COVID following which he had bacterial sinusitis and he received antibiotics and he returned to his normal work. 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 Patient reported since about a week ago he started to have cough initially dry but then started to have phlegm which brownish in color. Patient denied any chills but reported of feeling feverish but did not record. He has a associated mild chest pain on coughing in the left side. Since the last 2 days patient had worsening shortness of breath and episode of palpitations following which he came called the EMS and as per EMS patient was tachycardic and had low oxygen at 84% on room air following which he was given a DuoNeb treatment and put on oxygen EN route and is SpO2 improved. On arrival to the ER patient was tachycardic in the ECG showed atrial fibrillation with a RVR following which the patient was given a push of diltiazem but it did not improve and another push was given the heart rate did not decrease following which he was put on the diltiazem drip. Course of hospitalization: Patient converted to sinus rhythm while on Cardizem drip. Patient had chest tube placed by interventional radiologist with noted pustulant drainage/empyema from chest tube. Patient currently hemodynamically stable. Patient will be transferred to [facility] to be evaluated by thoracic surgeon for possible thoracotomy. Patient will be continued on chest tube suction, current antibiotic therapy with Zosyn and vancomycin, as well as rate control with Cardizem long-acting. Patient was agreeable to be transferred. All questions answered Physical examination General: Alert and Oriented x3. No acute distress. Well-nourished. Eyes: EOMI. Anicteric. HENT: Moist mucous membranes. Lungs: Decreased breath sounds in left upper and lower lung. Chest tube site benign. Noted pustulant drainage Cardiovascular: Regular rate and rhythm. No murmur. No JVD. Abdomen: Soft, non-tender and non-distended. No palpable masses. Extremities: No edema. Non-tender. Skin: No rashes or lesions. Warm. Neurologic: No focal neurological deficits. CN II-XII grossly intact, but not individually tested. Psychiatric: Cooperative. Appropriate mood and affect. Total time spent with patient discussing and formulating plan of care: 35 minutes. This medical document was created using an electronic medical record system with [employer] dictation system. Although this document has been carefully reviewed, there may still be some phonetic and typographical errors. These areas are purely typographical due to imperfections of the software programs, and do not reflect any compromise in the patient's medical care. Consults/Reason for consult Cardiology: AFib with RVR Condition at Discharge: Fair Final Diagnosis/Problems List Acute hypoxic respiratory failure Left lung empyema Primary hypertension AFib with RVR Sepsis Obesity Discharge Disposition: Home Discharge Instruct/Medications Diet: Cardiac 2g Na,low cholest Activity: No Restrictions, As Tolerated Follow Up/Referral: Thoracic surgery Medications: Refer to medication reconciliation form 36 Discharge Statement: "Patient was advised to return to the ER or call 911 if any headaches, dizziness, shortness of breath, chest pain, abdominal pain, bleeding, fevers, or worsening of medical condition. Patient was counseled about treatment plan, medications, possible side effects, patientverbalized understanding. All questions were answered to the best of my ability. This discharge took greater then 30 minutes in planning, reviewing documentation, counseling the patient, and discussing with other team members." ASSESSMENT ASSESSMENT Assessment Acute hypoxic respiratory failure Left lung empyema Date of Service: Jan 31, 2025 Billing Provider: SAVITA BEDOYA NP Common Visit Codes: 79386-DTK/OBS DISCH DAY >30min SAVITA BEDOYA CLINICAL ADVISOR Jan 31, 2025 12:23
--- NOTE | 2025-01-31 13:12 | DVHPN2 ---
Consult Progress Note Subjective Other Systems: Patient now in normal sinus rhythm on gambling monitor Objective vital signs Vital Sign Date Time Temp Pulse Resp B/P (MAP) Pulse Ox O2 Delivery O2 Flow Rate FiO2 01/31/25 12:00 17 94 Nasal Cannula* 4 N/A Oxymizer 01/31/25 12:00 98.4 96 130/74 (92) 98.4 Total Intake and Output 01/30/25 01/30/25 01/31/25 15:00 23:00 07:00 Intake Total 345 ml 670 ml 555 ml Balance 345 ml 670 ml 555 ml medications Current Medications Medications Dose Ordered Sig/William Route Start Time Stop Time Status Last Admin Dose Admin Nitroglycerin 0.4 mg Q5MINP PRN SL 01/30/25 03:00 Morphine Sulfate 2 mg Q30M PRN IV 01/30/25 03:00 Vancomycin HCl 0 ml @ 0 mls/hr UD IV 01/30/25 03:00 Piperacillin Sod/ Tazobactam Sod 100 ml @ 25 mls/hr Q8HR IV 01/30/25 06:00 01/31/25 05:22 25 MLS/HR Enoxaparin Sodium 100 mg Q12H SC 01/30/25 16:00 01/31/25 03:07 100 MG Acetaminophen 650 mg Q6HP PRN PO 01/30/25 03:30 Pantoprazole Sodium 40 mg DAILY IV 01/30/25 10:00 01/31/25 10:56 40 MG Acetylcysteine 100 mg Q6HR NEB 01/30/25 06:00 01/30/25 17:54 100 MG Levalbuterol HCl 0.625 mg Q6HR NEB 01/30/25 06:00 01/30/25 17:54 0.625 MG Vancomycin HCl 150 ml @ 150 mls/hr Q8H IV 01/30/25 12:00 01/31/25 11:55 150 MLS/HR Digoxin 0.125 mg DAILY PO 01/31/25 10:00 01/31/25 10:56 0.125 MG Diltiazem HCl 125 ml @ 5 mls/hr Q24H IV 01/30/25 13:15 01/30/25 14:06 5 MLS/HR Guaifenesin/ Dextromethorphan 10 ml Q4HP PRN PO 01/30/25 20:00 01/30/25 20:16 10 ML Examination: GENERAL:Normal, LUNGS:Abnormal (left chest tube), CVS:Normal, NEURO:Normal laboratory and microbiology Laboratory Tests 01/31/25 06:00 Test 01/31/25 06:00 Range/Units Serum Glucose 106 74-106 mg/dL Problem List/Assessment/Plan Problem List/Assessment/Plan Atrial fibrillation with rapid ventricular response, new onset, now NSR Rule out structural heart disease Hypertension Acute respiratory failure Left lung empyema status post chest tube insertion Hypokalemia Transaminitis Tobacco use Morbid obesity Plan/Recommendations (Dr. Navas): * Transthoracic echocardiogram to evaluate cardiac function * ?[id number] VASc score: 1 point * Therapeutic Lovenox, transition to NOAC when appropriate * Stop Cardizem drip; initiate oral beta-dominga * Consider antiarrhythmic agent amiodarone with improved LFTs. * Monitor and replete electrolytes as needed * Close Cardiac surveillance * Antibiotics per primary care team The patient is pending transfer to [facility] for possible thoracic surgery. In the setting of an unremarkable transthoracic echocardiogram, there is no further inpatient cardiac workup indicated at this time. Thank you for allowing us to care for this patient. Please call with any questions or concerns. Critical care time spent: 38 minutes. This medical document was created using an electronic medical record system with voice recognition software and computerized dictation system. Although this document has been carefully reviewed, there might still be some phonetic and typographical errors. Occasional wrong-word or ``sound-alike substitutions may have occurred due to the inherent limitations of voice recognition software. These areas are purely typographical due to imperfections of the software programs and do not reflect any compromise in the patient's medical care. Please read the chart carefully and recognize, using context, where these substitutions have occurred. Plan discussed with: Patient Date of Service: Jan 31, 2025 Billing Provider: ANUP RODRIGUEZ Common Visit Codes: 74793-[id number] CARE 30-74 MIN ANUP RODRIGUEZ Jan 31, 2025 13:12
[2025-01-31] MEDS: METOPROLOL TARTRATE 25 MG TAB PO ONE (13:35)
[2025-01-31] MEDS ORDERED: LEVALBUTEROL HCL 1.25 MG/3 ML NEB NEB PRN (15:00)
[2025-01-31] MEDS ORDERED: ACETYLCYSTEINE 10 %(100MG/ML) SOL 4ML NEB PRN (15:00)
[2025-01-31 15:02] LABS: Body Fluid Red Blood Cells 22022 CUMM (0-2000); Body Fluid White Blood Cells 61630 CUMM (0-200)
[2025-01-31] MEDS: METOPROLOL TARTRATE 25 MG TAB PO SCH (22:00)
[2025-02-01] VITALS: BP 128/77; PULSE 81; PULSE 82; RESP 27; RESP 29; TEMP 98.4; O2SAT 93; O2SAT 94
[2025-02-01 01:00] VITALS: BP 116/60; PULSE 81; RESP 23; O2SAT 95
[2025-02-01 02:00] VITALS: BP 114/60; PULSE 79; PULSE 82; RESP 22; RESP 24; O2SAT 94; O2SAT 96
[2025-02-01 03:00] VITALS: BP 123/62; PULSE 80; RESP 22; O2SAT 94
[2025-02-01 04:00] VITALS: BP 125/56; PULSE 77; RESP 19; RESP 20; TEMP 98.4; O2SAT 95
[2025-02-01 04:38] LABS: Basophils # (auto) 0 10 ^3/uL (0-0.2); Basophils % (auto) 0.4 % (0.0-2.0); Eosinophils # (auto) 0.1 10 ^3/uL (0-0.8); Eosinophils % (auto) 2.6 % (0.0-7.0); Hematocrit 32.1 % (41.0-53.0); Hemoglobin 10.9 g/dL (13.5-17.5); Lymphocytes % (auto) 19.8 % (10.0-50.0); Mean Corpuscular Hemoglobin 31.7 pg (28.0-32.0); Mean Corpuscular Volume 93.1 fL (80.0-100.0); Monocytes # (auto) 0.5 10 ^3/uL (0-1.3); Monocytes % (auto) 10.2 % (0.0-12.0); Neutrophils # (auto) 3.2 10 ^3/uL (1.6-8.6); Nucleated Red Blood Cells % 0.1 %; Platelet Count (auto) 370 10^3/uL (140-450); Red Blood Cells 3.45 10^6/uL (4.5-5.90); Red Cell Distribution Width 16.1 % (11.8-14.3); White Blood Cell 4.8 10^3/uL (4.4-10.8)
[2025-02-01 04:45] LABS: Chloride 106 mmol/L (98-107); Sodium 141 mmol/L (136-145)
[2025-02-01 04:51] LABS: Blood Urea Nitrogen 9 mg/dL (9-23); Glucose 94 mg/dL (74-106)
[2025-02-01 04:55] LABS: Calcium 8.4 mg/dL (8.7-10.4)
[2025-02-01 04:56] LABS: Potassium 3.3 mmol/L (3.5-5.1)
[2025-02-01 04:58] LABS: Anion Gap 8 (5-15); Carbon Dioxide 27 mmol/L (20-31)
--- NOTE | 2025-02-01 10:18 | ECG ---
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
[2025-02-01 12:07] LABS: Protein, Body Fluid 1.2 g/dL (.)
--- NOTE | 2025-02-01 13:38 | DVHSR ---
APPROVED REPORT EXAM: LIMITED Two-dimensional and M-mode echocardiogram with Doppler and color Doppler. Blood Pressure: 124/67 mmHg INDICATION Possible Heart Failure New onset A-fib RISK FACTORS Height: 5' 10", Weight: 210 DIMENSIONS LVDd5.3 (3.8-5.7cm)LA (2D)3.9 (1.9-4.0cm)Aortic Root3.3 (2.0-3.7cm) LVDs3.5 (2.5-4.0cm)LA (MM) (1.9-4.0cm)Aortic Cusp Exc2.2 (1.5-2.0cm) EF (%) 63.0 (55-70%)Rt. Atrium4.1 (1.9-4.0cm)Asc. Aorta cm IVSd1.1 (0.7-1.1cm)RV (D) (1.8-2.4cm) PWd1.1 (0.7-1.1cm) Mitral Valve MitralMitral Stenosis E wave1.10m/sMV Mean GR.mmHg A wave0.70m/sMV Peak GR.mmHg E/A ratio1.62D MVAcm2 Aortic Valve Aortic ValveAortic Stenosis V11.10m/Ivana Mean GR.6mmHg V21.50m/Ivana Peak GR.10mmHg LVOT Diameter2.4 (1.8-2.4cm)Doppler AVA3.32cm2 Pulmonic Valve V20.80m/s Other Information Quality : Technically LimitedRhythm : Technically limited study due to body habitus. Conclusion Technically difficult study. Sinus rhythm noted Concentric LVH with biatrial enlargement. Valves appear to be structurally normal. EF of 55-60% with normal RV function. Suboptimal Doppler. Mild pulmonic insufficiency. No pericardial effusion masses or vegetations.
--- NOTE | 2025-02-03 12:17 | ECG ---
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
== END 2025-02-01 04:28 | disposition short-term general hospital (02) | DRG 871 ==
LOC: EDBD 21:01 → ER 21:05 → OVERFLOW 01-30 02:52 → ICU WEST 01-31 15:45
PROVIDERS: ADMIT Nurse Practitioner Acute Care; ATTEND Nurse Practitioner Acute Care
PROC: 0W9B30Z Drainage of Left Pleural Cavity with Drainage Device, Percutaneous Approach (ICD-10-PCS; principal; 2025-01-31)
DX: A41.9 Sepsis, unspecified organism (principal); J18.9 Pneumonia, unspecified organism; J86.9 Pyothorax without fistula; J96.01 Acute respiratory failure with hypoxia; J90 Pleural effusion, not elsewhere classified; D68.69 Other thrombophilia; E66.01 Morbid (severe) obesity due to excess calories; Z68.30 Body mass index [BMI] 30.0-30.9, adult; I11.9 Hypertensive heart disease without heart failure; Z20.822 Contact with and (suspected) exposure to COVID-19; E87.6 Hypokalemia; I48.91 Unspecified atrial fibrillation; R74.01 Elevation of levels of liver transaminase levels; Z87.891 Personal history of nicotine dependence; Z87.01 Personal history of pneumonia (recurrent); Z86.16 Personal history of COVID-19
CPT/HCPCS: 10005; 36415; 71045; 71250; 76604; 76942; 77012; 80048; 80053; 80061; 80307; 81001; 83036; 83605; 83735; 83880; 83986; 84443; 84484; 85025; 85610; 85730; 87040; 87070; 87081; 87205; 87426; 87804; 89051; 93005; 93306; 93970; 94640; 96365; 99291; G0378; J0153; J2003; J2250; J2470; J2543